=== PATIENT | male | born 1975 | race Caucasian/White ===

== ENCOUNTER 2021-04-05 21:40 | Emergency (ER) | payer MEDICAID, OTHER ==
[~2021-04-05] VITALS: Ht 182.9 cm; Wt 83.9 kg
[2021-04-05 21:44] VITALS: BP 160/95
--- NOTE | 2021-04-05 21:47 | NUR ---
TO LOBBY A/W BED AMBULATORY
[2021-04-05] MEDS ORDERED: TETRACAINE 1% 2 ML AMP INJ ONE (22:45)
[2021-04-05] MEDS ORDERED: FLUORESCEIN OPTH STRIP 1 MG OP ONE (22:45)
--- NOTE | 2021-04-05 22:45 | NUR ---
Dr. Griffin examining patient.
[2021-04-05] MEDS ORDERED: TETRACAINE HCL/PF 0.5% OPTH 4 ML BTL ONE (23:01)
--- NOTE | 2021-04-05 23:01 | NUR ---
45 YO/M BIB SELF W C/O L EYE PAIN 10/10 SCRATCH/STINGING LIKE S/P WORKING W METAL AND FEELING LIKE A METAL PIECE WENT IN HIS L EYE APPROX 6HOURS AGO. PATIENT DENIES BLURRY VISION, REPORTS LIGHT SENSITIVITY. PATIENT EYE RED NO BLEEDING NOTED OR DISCHARGE. PUPIL DIFFICULT TO ASSESS D/T PATIENT UNABLE TO OPEN IT FROM PAIN. PATIENT LAYING IN BED LOCKED IN LOWEST POSITION W X1 SIDERAIL UP. PATIENT COVERING L EYE W HAND AND A CLOTH. ERMD AT BEDSIDE. PMH:DENIES NKA
[2021-04-05] MEDS ORDERED: TOMOMETER 1 DEV DEV MC ONE (23:05)
--- NOTE | 2021-04-05 23:13 | NUR ---
ERMD AT BEDSIDE FOR PT PROCEDURE.
--- NOTE | 2021-04-06 00:56 | NUR ---
PT SITTING IN BED LOCKED IN LOWEST POSITION. PT REPORT EYE AND PERORBITAL EYE PAIN IRRITATION LIKE 02/27. ERMD MADE AWARE.
[2021-04-06 02:23] VITALS: BP 134/81
--- NOTE | 2021-04-06 02:23 | NUR ---
Patient discharged with v/s stable. Written and verbal after care instructions given and explained. Patient verbalized understanding. Carried with steady gait. All questions addressed prior to discharge. Advised to follow up with PMD.
== END 2021-04-06 02:35 | disposition home or self-care (01) ==
LOC: MED 21:40
DX: H20.9 Unspecified iridocyclitis (principal); H57.12 Ocular pain, left eye
CPT/HCPCS: 70480; 99284; J3490

== ENCOUNTER 2021-09-28 12:32 | Emergency (ER) | payer OTHER ==
[~2021-09-28] VITALS: Ht 182.9 cm; Wt 95.3 kg
[2021-09-28 13:12] VITALS: BP 162/95
--- NOTE | 2021-09-28 13:28 | NUR ---
jennifer parker evaluating pt in [place] at this time
--- NOTE | 2021-09-28 13:29 | NUR ---
46 y/o male, c/o toothache (does not know which tooth, states its on left side). pt states overnight he started having increased pain to left side of face, left side appears to have visible swelling, deficit with smiling on left side. sensations intact, upper and lower extremities bilaterally strong. aa&ox4, ambulates. pt states dentist will not operate if he does not have antibiotics or has infection tx. pmh: denies nka med: denies
[2021-09-28] MEDS ORDERED: KETOROLAC 30 MG/ML VIAL IM ONE (13:30)
[2021-09-28] MEDS ORDERED: ACET-8386 PO (13:31)
[2021-09-28] MEDS ORDERED: KETOROLAC 30 MG/ML VIAL ONE (13:31)
[2021-09-28] MEDS ORDERED: AMOX500C25 PO (13:31)
--- NOTE | 2021-09-28 13:50 | NUR ---
Note philippealexis in EDM - 09/28/21 at 1357 by [email or web address] NO NURSING CARE RENDERED, Patient discharged with v/s stable. Written and verbal after care instructions given and explained. Patient alert, oriented and verbalized understanding of instructions. Ambulatory with steady gait. All questions addressed prior to discharge. ID band removed. Patient advised to follow up with PMD. Rx AMOXIXCILLN, NORCO of given. Patient educated on indication of medication including possible reaction and side effects. Opportunity to ask questions provided and answered.
[2021-09-28 13:54] VITALS: BP 157/88
== END 2021-09-28 13:54 | disposition home or self-care (01) ==
LOC: MED 12:32
DX: K08.89 Other specified disorders of teeth and supporting structures (principal); Z79.899 Other long term (current) drug therapy
CPT/HCPCS: 96372; 99283; J1885

== ENCOUNTER 2021-10-18 23:34 | Emergency (ER) | payer OTHER ==
[~2021-10-18] VITALS: Ht 182.9 cm; Wt 95.3 kg
[~2021-10-18 23:34] MED LIST: ACET-8386 PO; AMOX500C25 PO
[2021-10-19 00:28] VITALS: BP 140/99
--- NOTE | 2021-10-19 01:39 | NUR ---
PT TAKEN TO BED 7
[2021-10-19] MEDS ORDERED: KETOROLAC 60 MG/2 ML VIAL IM ONE (02:10)
[2021-10-19] MEDS ORDERED: IBUP-2213 PO (02:42)
[2021-10-19] MEDS ORDERED: CEPH-588 PO (02:42)
[2021-10-19 03:03] VITALS: BP 140/75
--- NOTE | 2021-10-19 03:03 | NUR ---
Patient discharged with v/s stable. Written and verbal after care instructions given and explained. Patient alert, oriented and verbalized understanding of instructions. Ambulatory with steady gait. All questions addressed prior to discharge. ID band removed. Patient advised to follow up with PMD. Rx of Keflex and ibuprofen given. Patient educated on indication of medication including possible reaction and side effects. Opportunity to ask questions provided and answered.
--- NOTE | 2021-10-19 03:03 | NUR ---
Note philippeone in EDM - 10/19/21 at 0308 by [email or web address] Patient discharged. Written and verbal after care instructions given and explained. Patient alert, oriented and verbalized understanding of instructions. Ambulatory with steady gait. All questions addressed prior to discharge. ID band removed. Patient advised to follow up with PMD. Rx of Keflex given. Patient educated on indication of medication including possible reaction and side effects. Opportunity to ask questions provided and answered.
--- NOTE | 2021-10-19 03:09 | NUR ---
The patient's care was reviewed and supervised by Kathy Lock RN. Chart check.
== END 2021-10-19 03:03 | disposition home or self-care (01) ==
LOC: MED 23:34
DX: K12.2 Cellulitis and abscess of mouth (principal); F17.200 Nicotine dependence, unspecified, uncomplicated; Z79.899 Other long term (current) drug therapy
CPT/HCPCS: 96372; 99283; J1885

== ENCOUNTER 2022-12-28 16:24 | Emergency (ER) | payer OTHER ==
[~2022-12-28] VITALS: Ht 182.9 cm; Wt 93.0 kg
[~2022-12-28 16:24] MED LIST changes: -ACET-8386 PO; +ACET-8905 PO; +CEPH-588 PO; +IBUP-2213 PO
[2022-12-28 16:28] VITALS: BP 156/106; PULSE 92; RESP 16; TEMP 97.9; O2SAT 96
--- NOTE | 2022-12-28 17:44 | NUR ---
47 M PATIENT PRESENTS TO ED WITH BILATERAL LEG PAIN. PT HAS SIGNS OF CELLULITIES IN BOTH EXTREMITIES; PT STATES HES HAD PAIN FOR 5 DAYS. DENIES N/V/D; SKIN IS/WARM/DRY; THE SKIN COLOR OF PTS LEGS IS RED. NO PRESSENCE OF EDEMAN NOTED; AAOX4 WITH EVEN AND STEADY GAIT; LUNGS CLEAR BL; HR EVEN AND REGULAR; PT DENIES ANY FEVER, CP, SOB, OR COUGH AT THIS TIME; PATIENT STATES PAIN OF 8/10 WHEN STANDING; VSS; PATIENT POSITIONED FOR COMFORT; HOB ELEVATED; BEDRAILS UP X2; BED DOWN. CALL WITH IN REACH ER MD MADE AWARE OF PT STATUS. PMHX NONE ALLERGIES KNA
--- NOTE | 2022-12-28 18:30 | NUR ---
PROVIDER AT BEDSIDE.
[2022-12-28] MEDS ORDERED: IBUP-2213 PO (18:31)
[2022-12-28 19:12] VITALS: BP 156/106; PULSE 92; RESP 16; TEMP 97.9; O2SAT 99
--- NOTE | 2022-12-28 19:12 | NUR ---
Patient discharged with v/s stable. Written and verbal after care instructions given and explained. Patient verbalized understanding. Ambulatory with steady gait. All questions addressed prior to discharge. Advised to follow up with PMD.
--- NOTE | 2022-12-28 19:13 | NUR ---
The patient's care was reviewed and supervised by Hay 06 ED, RN.
== END 2022-12-28 19:22 | disposition home or self-care (01) ==
LOC: MED 16:24
DX: R60.9 Edema, unspecified (principal); Z79.899 Other long term (current) drug therapy
CPT/HCPCS: 81002; 99282